=== PATIENT | male | born 1940 | race Caucasian/White ===

== ENCOUNTER 2022-02-14 10:48 | Inpatient (IN) ==
[2022-02-14 11:37] LABS: Basophils % 0.4 %; Eosinophils % 0.4 %; Hemoglobin 11.2 g/dL (12.9-16.9); Immature Granulocytes % 0.2 % (0-4); Lymphocytes # 1.3 K/mcL (0.6-4.6); Lymphocytes % 12.1 %; Mean Corpuscular Hemoglobin 29.6 pg (28.0-33.3); Mean Corpuscular Volume 92.3 fL (83.0-100.0); Mean Platelet Volume 10.4 fL (9.4-12.4); Monocytes # 0.7 K/mcL (0.0-1.3); Monocytes % 6.7 %; Neutrophils # 8.5 K/mcL (1.6-8.9); Platelet Count 209 K/mcL (140-400); Red Blood Count 3.79 M/mcL (4.19-5.50); Segmented Neutrophils % 80.2 %; White Blood Count 10.6 K/mcL (4.3-11.1)
[2022-02-14 11:49] LABS: Prothrombin Time 11.1 Seconds (9.4-12.1)
[2022-02-14 11:51] LABS: Activated Partial Thrombo Time 31.5 Seconds (26.0-36.0)
[2022-02-14 11:56] LABS: Alanine Aminotransferase 9 Units/L (7-52); Albumin 3.4 g/dL (3.5-5.7); Albumin/Globulin Ratio 1.3 (1.1-2.2); Alkaline Phosphatase 82 Units/L (34-104); Aspartate Amino Transferase 13 Units/L (13-39); BUN/Creatinine Ratio 22 (6-26); Bilirubin,Total 0.4 mg/dL (0.3-1.0); Blood Urea Nitrogen 17 mg/dL (8-23); Calcium 9.1 mg/dL (8.6-10.3); Carbon Dioxide 30 mEq/L (23-29); Chloride 106 mEq/L (98-107); Globulin 2.7 g/dL (2.4-3.5); Glucose 141 mg/dL (70-105); Osmolality,Calculated 298 (280-300); Sodium 142 mEq/L (136-145); Total Protein 6.1 g/dL (6.4-8.9); eGFR For African Americans > 60 (> 60); eGFR For Non-African Americans > 60 (> 60)
[2022-02-14] MEDS ORDERED: Naloxone 0.4 MG/ML INJ IVP PRN (14:09)
[2022-02-14] MEDS ORDERED: Acetaminophen 325 MG TABLET PO PRN (14:09)
[2022-02-14] MEDS ORDERED: *HR* HYDROmorphone (PF) 1 MG/ML SYRINGE IVP ONE (16:34)
[2022-02-14] MEDS: *HR* LORazepam 0.5 MG TABLET PO SCH ×2 (17:45→21:38)
[2022-02-14] MEDS ORDERED: Melatonin 3 MG TABLET PO SCH (21:00)
[2022-02-14] MEDS ORDERED: 0.9 % Sodium Chloride 500 ML IVC ONE ×2 (21:22→23:50)
[2022-02-14] MEDS: Baclofen 10 MG TABLET PO SCH (21:37)
[2022-02-14] MEDS: Sennosides/Docusate Sodium TABLET PO SCH (21:37)
[2022-02-14] MEDS: Mirtazapine 15 MG TABLET PO SCH (21:38)
[2022-02-14] MEDS ORDERED: Perflutren Lipid Microsphere 1.3 ML in 0.9 % Sodium Chloride 8.7 ML IVP PRN (22:52)
[2022-02-15] MEDS ORDERED: *HR* Enoxaparin 40 MG/0.4 ML SYRINGE SQ SCH (06:00)
[2022-02-15] MEDS: Baclofen 10 MG TABLET PO SCH ×2 (07:42→20:32)
[2022-02-15] MEDS: Aspirin 81 MG TAB.CHEW PO SCH (07:42)
[2022-02-15] MEDS: polyethylene glycoL 3350 17 GM POWD.PACK PO SCH (07:42)
[2022-02-15] MEDS: Sennosides/Docusate Sodium TABLET PO SCH ×2 (07:43→20:31)
[2022-02-15] MEDS: amLODIPine 5 MG TABLET PO SCH (07:43)
[2022-02-15 07:44] LABS: Basophils # 0.1 K/mcL (0.0-0.2); Basophils % 0.5 %; Eosinophils # 0.1 K/mcL (0.0-0.6); Eosinophils % 1.1 %; Hematocrit 33.5 % (37.5-50.1); Hemoglobin 10.7 g/dL (12.9-16.9); Immature Granulocytes % 0.2 % (0-4); Lymphocytes % 17.4 %; Mean Corpuscular HGB Conc 31.9 g/dL (31.6-35.5); Mean Corpuscular Hemoglobin 29.6 pg (28.0-33.3); Mean Corpuscular Volume 92.8 fL (83.0-100.0); Mean Platelet Volume 10.9 fL (9.4-12.4); Monocytes % 9.2 %; Neutrophils # 8.1 K/mcL (1.6-8.9); Platelet Count 188 K/mcL (140-400); Red Blood Count 3.61 M/mcL (4.19-5.50); Red Cell Distribution Width 12.7 % (11.5-14.5); Segmented Neutrophils % 71.6 %; White Blood Count 11.3 K/mcL (4.3-11.1)
[2022-02-15] MEDS: *HR* LORazepam 0.5 MG TABLET PO SCH ×4 (07:54→20:32)
[2022-02-15 08:09] LABS: Alanine Aminotransferase 9 Units/L (7-52); Albumin 3.2 g/dL (3.5-5.7); Albumin/Globulin Ratio 1.2 (1.1-2.2); Alkaline Phosphatase 82 Units/L (34-104); Aspartate Amino Transferase 13 Units/L (13-39); BUN/Creatinine Ratio 17 (6-26); Bilirubin,Total 0.6 mg/dL (0.3-1.0); Blood Urea Nitrogen 14 mg/dL (8-23); Calcium 8.8 mg/dL (8.6-10.3); Carbon Dioxide 27 mEq/L (23-29); Chloride 106 mEq/L (98-107); Globulin 2.6 g/dL (2.4-3.5); Glucose 98 mg/dL (70-105); Osmolality,Calculated 290 (280-300); Sodium 140 mEq/L (136-145); Total Protein 5.8 g/dL (6.4-8.9); eGFR For African Americans > 60 (> 60); eGFR For Non-African Americans > 60 (> 60)
[2022-02-15] MEDS ORDERED: *HR* Metoprolol 5 MG/5 ML VIAL IVP ONE (10:27)
[2022-02-15] MEDS ORDERED: Acetaminophen IV 1,000 MG/100 ML BAG IVPB ONE (12:17)
[2022-02-15] MEDS ORDERED: Famotidine 20 MG/2 ML VIAL IVP ONE (12:17)
[2022-02-15] MEDS ORDERED: Celecoxib 200 MG CAPSULE PO ONE (12:18)
[2022-02-15] MEDS ORDERED: *HR* FentaNYL (PF) 100 MCG/2 ML VIAL ONE (12:26)
[2022-02-15] MEDS ORDERED: *HR* Propofol 200 MG/20 ML VIAL IVP ONE (12:26)
[2022-02-15] MEDS ORDERED: Lidocaine -MPF 2% 2 ML VIAL ONE (12:28)
[2022-02-15] MEDS ORDERED: *HR* Succinylcholine 200 MG/10 ML VIAL IVP ONE (12:28)
[2022-02-15] MEDS ORDERED: Lidocaine HCL 4 ML Topical Solution (Laryng-O-Jet Kit Sterile Pak) TP ONE (12:28)
[2022-02-15] MEDS ORDERED: CeFAZolin Syr 2,000MG/20 ML 2,000 MG/20 ML SYRINGE IVPB ONE (12:33)
[2022-02-15] MEDS ORDERED: Ringers Solution, Lactated 1,000 ML IVC SCH (12:45)
[2022-02-15] MEDS ORDERED: Ondansetron 4 MG/2 ML VIAL ONE (13:32)
[2022-02-15] MEDS: Mirtazapine 15 MG TABLET PO SCH (20:30)
[2022-02-15] MEDS: CeFAZolin 2,000 MG/120 ML BAG IVPB SCH (21:03)
[2022-02-16] MEDS: CeFAZolin 2,000 MG/120 ML BAG IVPB SCH (05:26)
[2022-02-16 07:02] LABS: Basophils % 0.1 %; Hematocrit 30.2 % (37.5-50.1); Hemoglobin 9.5 g/dL (12.9-16.9); Immature Granulocytes % 0.2 % (0-4); Lymphocytes % 10.4 %; Mean Corpuscular HGB Conc 31.5 g/dL (31.6-35.5); Mean Corpuscular Hemoglobin 28.9 pg (28.0-33.3); Mean Corpuscular Volume 91.8 fL (83.0-100.0); Mean Platelet Volume 10.7 fL (9.4-12.4); Monocytes # 0.7 K/mcL (0.0-1.3); Monocytes % 7.4 %; Platelet Count 174 K/mcL (140-400); Red Blood Count 3.29 M/mcL (4.19-5.50); Red Cell Distribution Width 12.8 % (11.5-14.5); Segmented Neutrophils % 81.9 %; White Blood Count 9.7 K/mcL (4.3-11.1)
[2022-02-16 07:31] LABS: BUN/Creatinine Ratio 19 (6-26); Blood Urea Nitrogen 16 mg/dL (8-23); Calcium 8.8 mg/dL (8.6-10.3); Carbon Dioxide 25 mEq/L (23-29); Chloride 105 mEq/L (98-107); Glucose 111 mg/dL (70-105); Magnesium 2.2 mg/dL (1.6-2.6); Osmolality,Calculated 288 (280-300); Potassium 4.4 mEq/L (3.5-5.1); Sodium 138 mEq/L (136-145); eGFR For African Americans > 60 (> 60); eGFR For Non-African Americans > 60 (> 60)
[2022-02-16] MEDS: Baclofen 10 MG TABLET PO SCH ×2 (09:09→20:09)
[2022-02-16] MEDS: Sennosides/Docusate Sodium TABLET PO SCH ×2 (09:09→20:09)
[2022-02-16] MEDS: polyethylene glycoL 3350 17 GM POWD.PACK PO SCH (09:10)
[2022-02-16] MEDS: amLODIPine 5 MG TABLET PO SCH (09:10)
[2022-02-16] MEDS: *HR* LORazepam 0.5 MG TABLET PO SCH ×3 (09:10→20:09)
[2022-02-16] MEDS: Aspirin 81 MG TAB.CHEW PO SCH (09:10)
[2022-02-16] MEDS: *HR* Enoxaparin 40 MG/0.4 ML SYRINGE SQ SCH (09:11)
[2022-02-16] MEDS: Mirtazapine 15 MG TABLET PO SCH (20:09)
[2022-02-17 05:29] LABS: Hematocrit 30.5 % (37.5-50.1); Hemoglobin 9.8 g/dL (12.9-16.9)
[2022-02-17] MEDS: *HR* LORazepam 0.5 MG TABLET PO SCH ×2 (08:52→12:27)
[2022-02-17] MEDS: polyethylene glycoL 3350 17 GM POWD.PACK PO SCH (08:53)
[2022-02-17] MEDS: Aspirin 81 MG TAB.CHEW PO SCH (09:12)
[2022-02-17] MEDS: Baclofen 10 MG TABLET PO SCH (09:12)
[2022-02-17] MEDS: amLODIPine 5 MG TABLET PO SCH (09:13)
[2022-02-17] MEDS: *HR* Enoxaparin 40 MG/0.4 ML SYRINGE SQ SCH (09:13)
[2022-02-17] MEDS: Sennosides/Docusate Sodium TABLET PO SCH (09:13)
[2022-02-17 10:23] VITALS: BP 110/63; PULSE 116; TEMP 97.7; O2SAT 91
[2022-02-17 12:00] LABS: Adenovirus Not Detected (Not Detect); Bordetella Pertussis Not Detected (Not Detect); Chlamydophila pneumoniae Not Detected (Not Detect); Coronavirus 229E Not Detected (Not Detect); Coronavirus HKU1 Not Detected (Not Detect); Coronavirus NL63 Not Detected (Not Detect); Coronavirus OC43 Not Detected (Not Detect); Human Metapneumovirus Not Detected (Not Detect); Human Rhinovirus/Enterovirus Not Detected (Not Detect); Influenza A Subtype 2009 H1 Not Detected (Not Detect); Influenza B Not Detected (Not Detect); Mycoplasma pneumoniae Not Detected (Not Detect); Parainfluenza Virus 1 Not Detected (Not Detect); Parainfluenza Virus 2 Not Detected (Not Detect); Parainfluenza Virus 3 Not Detected (Not Detect); Parainfluenza Virus 4 Not Detected (Not Detect); Respiratory Syncytial Virus Not Detected (Not Detect); SARS-CoV-2 Not Detected (Not Detect)
== END 2022-02-17 12:43 | DRG 481 ==
LOC: 4WAOSI 10:48 → EMEROOARM 10:48 → 4WAOSI 13:39 → SUATTDRO 14:29 → 4WAOSI 17:56
PROVIDERS: ADMIT Internal Medicine; ATTEND Internal Medicine